=== PATIENT | female | born 2000 | race Caucasian/White ===

== ENCOUNTER 2018-05-06 08:23 | Emergency (ER) | payer OTHER ==
[~2018-05-06] VITALS: Ht 165.1 cm; Wt 52.6 kg
[2018-05-06 08:27] VITALS: BP 132/78
--- NOTE | 2018-05-06 08:29 | NUR ---
PT AMBULATES TO BED 8 WITH STEADY GAIT
--- NOTE | 2018-05-06 08:34 | NUR ---
DR MARMOLEJO EVALUATING AT BEDSIDE
[2018-05-06] MEDS ORDERED: NACL 0.9% 1,000 ML IV SCH (08:48)
[2018-05-06] MEDS ORDERED: FAMOTIDINE 20 MG/2 ML VIAL IVP ONE (08:50)
[2018-05-06] MEDS ORDERED: GLYCOPYRROLATE 0.2 MG/ML VIAL IV ONE (08:50)
[2018-05-06] MEDS ORDERED: METOCLOPRAMIDE 10 MG/2 ML INJ VIAL IVP ONE (08:50)
[2018-05-06 09:14] LABS: BASOPHILS % (AUTO) 0.5 % (0.0-2.0); EOSINOPHILS # (AUTO) 0.1 K/uL (0-0.4); EOSINOPHILS % (AUTO) 1.7 % (0.0-4.0); HEMOGLOBIN 12.3 g/dL (12.0-16.0); MEAN CORPUSCULAR HEMOGLOBIN 26 pg (27-31); MEAN CORPUSCULAR HGB CONC 33 g/dL (33-37); MEAN CORPUSCULAR VOLUME 77.4 fL (80-94); MONOCYTES # (AUTO) 0.6 K/uL (0.8-1.0); MONOCYTES % (AUTO) 9.9 % (1.7-9.3); NEUTROPHILS # (AUTO) 3.8 K/uL (1.8-7.7); NEUTROPHILS % (AUTO) 57.9 % (42.2-75.2); PLATELET COUNT (AUTO) 206 K/uL (140-450); RED BLOOD CELL COUNT(AUTO) 4.78 MIL/uL (4.20-5.40); RED CELL DISTRIBUTION WIDTH 14.8 % (11.6-13.7); WHITE BLOOD COUNT (AUTO) 6.5 K/uL (4.5-11.0)
[2018-05-06 09:15] LABS: APPEARANCE,URINE HAZY (CLEAR); BILIRUBIN,URINE 1+ (NEGATIVE); BLOOD, URINE TRACE-L (NEGATIVE); COLOR,URINE YELLOW (YELLOW); LEUKOCYTE ESTERASE ,URINE NEGATIVE (NEGATIVE); NITRITE, URINE NEGATIVE (NEGATIVE); UGLUCOSE NEGATIVE (NEGATIVE)
--- NOTE | 2018-05-06 09:21 | NUR ---
ASSESSMENT COMPLETED AT BEDSIDE. C/O EPIGASTRIC PAIN THAT GETS WORSE WHEN SHE MOVES QUICKLY, DRINKS WATER, BEFORE A BM. THE PAIN HAS LASTED TWO WEEKS WITH WATER DIARRHEA BEGINNING THIS MORNING. DR. MARMOLEJO HAS SEEN PT, IV IN PLACE, MEDICATION GIVEN AND PT RESTING IN BED. AWAITING LABS.
[2018-05-06 09:22] LABS: ANION GAP 11.1 (8-16); CARBON DIOXIDE 28.9 mmol/L (21-32); CREATININE 0.8 mg/dL (0.6-1.3)
[2018-05-06 09:29] LABS: ALBUMIN 4.1 g/dL (3.4-5.0); TOTAL BILIRUBIN 1.3 mg/dL (0.0-1.0)
--- NOTE | 2018-05-06 09:43 | NUR ---
DISCHARGING PT TO HOME; PAIN STATES NO PAIN AT THIS TIME. PT IS AMBULATORY AND DISCHARGED WITH PERSCRIPTION FOR SYMPTOMS AND DIAGNOSIS. EDUCATED PT ON DIAGNOSIS AND ANSWERED ALL QUESTIONS; SIGNATURE OBTAINED; NO QUESTIONS REMAINING. PT IS LEAVING BY PERSONAL VEHICLE.
[2018-05-06 09:50] VITALS: BP 132/78
[2018-05-06 09:50] LABS: RBC,URINE 0-5 (RARE) /HPF (0-5); WBC,URINE 0-5 (RARE) /HPF (0-5)
== END 2018-05-06 09:43 | disposition home or self-care (01) ==
LOC: MED 08:23
DX: K29.70 Gastritis, unspecified, without bleeding (principal); K58.8 Other irritable bowel syndrome; Z88.0 Allergy status to penicillin
CPT/HCPCS: 36415; 80053; 81001; 81025; 82150; 83690; 84703; 85025; 96361; 96374; 96375; 99284; J2765; J3490; J7030

== ENCOUNTER 2020-11-11 12:25 | Emergency (ER) | payer OTHER ==
[~2020-11-11] VITALS: Ht 165.1 cm; Wt 52.6 kg
[2020-11-11 12:53] VITALS: BP 146/78
--- NOTE | 2020-11-11 13:42 | NUR ---
SEEN AND DISCAHRGED BY DR WILLIAMSON.
[2020-11-11 13:43] VITALS: BP 146/78
== END 2020-11-11 13:42 | disposition home or self-care (01) ==
LOC: MED 12:25
DX: M26.609 Unspecified temporomandibular joint disorder, unspecified side (principal); F41.9 Anxiety disorder, unspecified; Z88.0 Allergy status to penicillin; Z98.890 Other specified postprocedural states
CPT/HCPCS: 99281

== ENCOUNTER 2020-12-06 18:18 | Emergency (ER) | payer OTHER ==
[~2020-12-06] VITALS: Ht 165.1 cm; Wt 52.6 kg
[2020-12-06 18:43] VITALS: BP 139/89
--- NOTE | 2020-12-06 19:20 | NUR ---
Pt sitting in lobby , no acute distress noted at this time.
--- NOTE | 2020-12-06 20:23 | NUR ---
Patient ambulated to ER bed 9 w/ steady gait.
--- NOTE | 2020-12-06 20:30 | NUR ---
PATIENT 20 Y/O FEMALE BIB SELF FOR C/O N/V X 1 DAY W/ EPIGASTRIC PAIN. PER PATIENT, "I NORMALLY GET HEART BURN WHEN I EAT ACIDIC FOODS BUT I WAS WORRIED WHEN I STARTED FEELING NAUSEOUS." PER PATIENT HAS HAD 2 EPISODES OF VOMINTING. PER PATIENT VOMIT WAS CLEAR. PATIENT STATES I AM ABLE TO HOLD SOME FOOD DOWN BUT EVERY ONCE IN AWHILE I NEED TO THROW UP." SEE COMPLETE ASSESSMENT FOR FUTHER DETAILS. MEDHX: GERD ALLERGIES: PENICILLIN
--- NOTE | 2020-12-06 20:32 | NUR ---
ERMD at bedside for medical evaluation.
--- NOTE | 2020-12-06 20:39 | NUR ---
urine cup provided to patient for encouragement of urine sample.
--- NOTE | 2020-12-06 20:40 | NUR ---
Pt ambulated to restroom w/ steady gait.
--- NOTE | 2020-12-06 20:50 | NUR ---
urine sample collected and handed to lab.
[2020-12-06] MEDS: ALUMINUM HYD/MAG/SIMETHICONE 30 ML UDC PO ONE (20:56)
[2020-12-06] MEDS: FAMOTIDINE 20 MG TAB PO ONE (20:56)
[2020-12-06] MEDS: LIDOCAINE VISCOUS 2% 20 ML UDC PO ONE (20:56)
[2020-12-06] MEDS: ONDANSETRON 4 MG ODT PO ONE (20:57)
[2020-12-06 21:06] LABS: APPEARANCE,URINE CLEAR (CLEAR); BILIRUBIN,URINE NEGATIVE (NEGATIVE); BLOOD, URINE NEGATIVE (NEGATIVE); COLOR,URINE YELLOW (YELLOW); LEUKOCYTE ESTERASE ,URINE NEGATIVE (NEGATIVE); NITRITE, URINE NEGATIVE (NEGATIVE); PH,URINE 6.5 (5.0-9.0); UGLUCOSE NEGATIVE (NEGATIVE)
--- NOTE | 2020-12-06 21:48 | NUR ---
PATIENT STATES, "I FEEL SO MUCH BETTER AFTER THAT MEDICATION, I'M NOT NAUSEOUS AND MY HEART BURN WENT AWAY." ERMD MADE AWARE.
[2020-12-06 22:00] VITALS: BP 128/78
== END 2020-12-06 22:00 | disposition home or self-care (01) ==
LOC: MED 18:18
DX: K29.70 Gastritis, unspecified, without bleeding (principal); K21.9 Gastro-esophageal reflux disease without esophagitis; Z88.0 Allergy status to penicillin
CPT/HCPCS: 81003; 81025; 99284; Q0162

== ENCOUNTER 2021-11-13 08:17 | Emergency (ER) | payer OTHER ==
[~2021-11-13] VITALS: Ht 165.1 cm; Wt 52.2 kg
[2021-11-13 08:46] VITALS: BP 120/86
[2021-11-13] MEDS ORDERED: ONDANSETRON 4 MG/2 ML VIAL IVP ONE (08:55)
[2021-11-13] MEDS ORDERED: KETOROLAC 30 MG/ML VIAL IVP ONE (08:55)
[2021-11-13] MEDS ORDERED: NACL 0.9% 1,000 ML IV ONE (08:55)
--- NOTE | 2021-11-13 08:55 | NUR ---
PT W/C ASSISTED TO BED 10.
--- NOTE | 2021-11-13 09:05 | NUR ---
20G IV ESTABLISHED IN L AC. BLOOD WORK COLLECTED FROM IV
--- NOTE | 2021-11-13 09:14 | NUR ---
DR. CAT BEDSIDE EVALUATING PT
--- NOTE | 2021-11-13 09:26 | NUR ---
PT TAKEN TO CT VIA DONNA
--- NOTE | 2021-11-13 09:32 | NUR ---
BLOODWORK AND URINE WALKED OVER TO LAB
--- NOTE | 2021-11-13 09:36 | NUR ---
PT RETURNED FROM CT VIA GURNEY BACK TO BED 10
[2021-11-13 09:40] LABS: BASOPHILS % (AUTO) 0.5 % (0.0-2.0); EOSINOPHILS % (AUTO) 0.7 % (0.0-4.0); HEMATOCRIT 35.3 % (36-48); HEMOGLOBIN 11.4 g/dL (12.0-16.0); LYMPHOCYTES # (AUTO) 0.7 K/uL (2.5-16.5); MEAN CORPUSCULAR HEMOGLOBIN 25 pg (27-31); MEAN CORPUSCULAR HGB CONC 32 g/dL (33-37); MEAN CORPUSCULAR VOLUME 77.4 fL (80-94); MONOCYTES # (AUTO) 0.6 K/uL (0.8-1.0); MONOCYTES % (AUTO) 11.8 % (1.7-9.3); PLATELET COUNT (AUTO) 186 K/uL (140-450); RED BLOOD CELL COUNT(AUTO) 4.56 MIL/uL (4.20-5.40); RED CELL DISTRIBUTION WIDTH 16.4 % (11.6-13.7); WHITE BLOOD COUNT (AUTO) 5.4 K/uL (4.8-10.8)
--- NOTE | 2021-11-13 09:52 | NUR ---
21 Y FEMALE FROM HOME WITH C/O RLQ ABD PAIN XTHIS AM. PT STATED SHE HAS ALSO HAD NAUSEA, WET COUGH, AND SORE THORAT SINCE YESTERDAY. PT BELIEVES TO HAVE COVID DUE TO FATHER TESTING POSITIVE X2 DAYS AGO. PT DENIES ANY CHEST PAIN/SOB AT THIS TIME. ABDOMEN IS TENDER TO TOUCH AND WORSE ON RLQ. PT CURRENTLY A&OX4, SKIN DRY AND INTACT. PMH: OVARIAN CYST ALLERGIES: PENICILLIN
--- NOTE | 2021-11-13 10:16 | NUR ---
ULTRASOUND BEDSIDE WITH PATIENT
[2021-11-13 10:31] LABS: ALBUMIN 3.7 g/dL (3.4-5.0); ANION GAP 14.7 (8-16); CARBON DIOXIDE 22.3 mmol/L (21-32); CREATININE 0.6 mg/dL (0.6-1.3); TOTAL BILIRUBIN 0.8 mg/dL (0.0-1.0)
[2021-11-13 10:51] LABS: APPEARANCE,URINE CLEAR (CLEAR); BILIRUBIN,URINE NEGATIVE (NEGATIVE); BLOOD, URINE NEGATIVE (NEGATIVE); COLOR,URINE YELLOW (YELLOW); LEUKOCYTE ESTERASE ,URINE NEGATIVE (NEGATIVE); NITRITE, URINE NEGATIVE (NEGATIVE); PH,URINE 7.5 (5.0-9.0); UGLUCOSE NEGATIVE (NEGATIVE)
--- NOTE | 2021-11-13 11:41 | NUR ---
Patient appears to be resting comfortably in bed. Vital Signs within normal limits. Respirations even and unlabored.
--- NOTE | 2021-11-13 12:03 | NUR ---
PT MOVED FROM BED 10 TO CHAIR B
[2021-11-13] MEDS ORDERED: IBUP-2213 PO (12:08)
[2021-11-13] MEDS ORDERED: ONDA8TAB87 PO (12:08)
[2021-11-13 12:37] VITALS: BP 113/66
--- NOTE | 2021-11-13 12:37 | NUR ---
Patient discharged with v/s stable. Written and verbal after care instructions given and explained. Patient alert, oriented and verbalized understanding of instructions. Ambulatory with steady gait. All questions addressed prior to discharge. ID band removed. Patient advised to follow up with PMD. Rx of IBUPROFEN AND ZOFRAN given. Patient educated on indication of medication including possible reaction and side effects. Opportunity to ask questions provided and answered.
== END 2021-11-13 12:37 | disposition home or self-care (01) ==
LOC: MED 08:17
DX: R10.31 Right lower quadrant pain (principal); R11.0 Nausea; K21.9 Gastro-esophageal reflux disease without esophagitis; Z88.0 Allergy status to penicillin
CPT/HCPCS: 36415; 74176; 76856; 80053; 81003; 81025; 83690; 85025; 96361; 96374; 96375; 99285; J1885; J2405; J7030; Q0092